=== PATIENT | female | born 1955 | race Hispanic/Latino ===

== ENCOUNTER 2018-01-28 08:27 | Outpatient (CLI) | payer MEDICARE ==
[2018-01-28] MEDS ORDERED: ISOVUE-370 76%-LOCM 1 ML ONE (11:00)
== END 2018-01-28 08:28 | disposition home or self-care (01) ==
LOC: BICCT 08:27
PROVIDERS: ATTEND Family Medicine
DX: R10.30 Lower abdominal pain, unspecified (principal); J98.4 Other disorders of lung; Z90.49 Acquired absence of other specified parts of digestive tract
CPT/HCPCS: 74177